=== PATIENT | male | born 1995 | race Caucasian/White ===

== ENCOUNTER 2020-07-25 11:47 | Emergency (ER) | payer OTHER ==
--- NOTE | 2020-07-25 12:50 | ER Document Report ---
Entered by STEVE STEVENSON SCRIBE 07/25/20 1204 Acting as scribe for:LATOYA MARTINO MD ED Respiratory Problem - General Chief Complaint: Shortness Of Breath Stated Complaint: SHORTNESS OF BREATH Time Seen by Provider: 07/25/20 12:03 Mode of Arrival: Ambulatory Information source: Patient Notes: This 25 year old male patient with a history of asthma presents to the ED today for evaluation after [facility] today and reportedly being hypoxic with an O2 saturation of 91% on room air. Patient O2 saturation was 97% on room air when he arrived here. Patient states that his symptoms started with just post nasal drip x6 days ago which then developed into cough and congestion a day later. He reports that he became short of breath with a " heavy chest" x3.5 days ago. He reports that he thought his symptoms were related to his asthma and allergies, so he didn't get tested immediately. He states that he does feel better at this time. Denies headache or runny nose. - Related Data Allergies/Adverse Reactions: Penicillins Allergy (Verified 07/25/20 12:41) mold Adverse Reaction (Verified 07/25/20 12:41) tree and shrub pollen Adverse Reaction (Verified 07/25/20 12:41) MITES Adverse Reaction (Uncoded 07/25/20 12:41) PET DANDER Adverse Reaction (Uncoded 07/25/20 12:41) Past Medical History - General Information source: Patient - Social History Smoking Status: Never Smoker Cigarette use (# per day): No Chew tobacco use (# tins/day): No Smoking Education Provided: No Frequency of alcohol use: Occasional Drug Abuse: None Family History: Reviewed & Not Pertinent Pulmonary Medical History: Reports: Hx Asthma Review of Systems - Review of Systems Constitutional: See HPI, Recent illness EENT: See HPI, Other - Post nasal drainage. denies: Nose discharge Cardiovascular: Other - "heavy chest" Respiratory: See HPI, Cough, Short of breath Gastrointestinal: No symptoms reported Genitourinary: No symptoms reported Male Genitourinary: No symptoms reported Musculoskeletal: No symptoms reported Skin: No symptoms reported Hematologic/Lymphatic: No symptoms reported Neurological/Psychological: See HPI. denies: Headaches -: Yes All other systems reviewed and negative Physical Exam - Vital signs Vitals: Temp Pulse Resp BP Pulse Ox 98.3 F 105 H 20 182/107 H 97 07/25/20 11:51 07/25/20 11:51 07/25/20 11:51 07/25/20 11:51 07/25/20 11:51 - General General appearance: Alert In distress: None - HEENT Head: Normocephalic, Atraumatic Eyes: Normal Extraocular movements intact: Yes Pupils: PERRL - Respiratory Breath sounds: Other - Coarse breath sounds and rhonchi in the bases when he coughs - Cardiovascular Rhythm: Regular Heart sounds: Normal auscultation Murmur: No - Abdominal Inspection: Obese Distension: No distension Bowel sounds: Normal Tenderness: Nontender - Abdomen soft Organomegaly: No organomegaly - Back Back: Normal, Nontender - Extremities General upper extremity: Normal inspection General lower extremity: Normal inspection. No: Edema - Neurological Neuro grossly intact: Yes Orientation: AAOx4 Bolton Coma Scale Eye Opening: Spontaneous Rich Coma Scale Verbal: Oriented Bolton Coma Scale Motor: Obeys Commands Rich Coma Scale Total: 15 - Psychological Associated symptoms: Normal affect, Normal mood - Skin Skin Temperature: Warm Skin Moisture: Dry Skin Color: Normal Course - Re-evaluation Re-evalutation: 07/25/20 12:52 The patient was evaluated during the global COVID-19 pandemic and that diagnosis was suspected/considered upon their initial presentation. Their evaluation, treatment and testing was consistent with current guidelines for patients who present with complaints or symptoms that may be related to COVID-19. 07/25/20 15:29 The patient was given a DuoNeb treatment, he P reports that about 1 minute into the treatment the medicine container part came apart and the medicine came out. One of the staff workers came and turned off the air and hung it on the wall and did not return. I was never informed of this. Patient's lungs however do not show any wheezes and did not when I initially saw him so I doubt it would have made any difference in his shortness of breath. On patient arrival his blood pressure was quite high, however now it is down to a normal range. - Vital Signs Vital signs: Temp Pulse Resp BP Pulse Ox 98.3 F 89 16 138/90 H 99 07/25/20 11:51 07/25/20 16:07 07/25/20 16:07 07/25/20 16:07 07/25/20 16:07 - Laboratory Results Result Diagrams: 07/25/20 13:23 07/25/20 13:23 Laboratory Results Interpreted: 07/25/20 13:23 WBC 3.5 L Critical Laboratory Results Reviewed: No Critical Results - Radiology Results Radiology Results Interpreted: 07/25/20 13:58 Chest x-rays not show acute cardiopulmonary abnormalities. Critical Radiology Results Reviewed: No Critical Results Discharge - Discharge Clinical Impression: Dyspnea on exertion, COVID-19 virus infection, History of asthma Condition: Stable Disposition: HOME, SELF-CARE Instructions: COVID-19 Guidance for Persons Under Investigation Additional Instructions: Dyspnea, Nonspecific: You were evaluated for shortness of breath, or dyspnea. Dyspnea has many causes, and some are more serious than others. Sometimes it's impossible to diagnose the cause of dyspnea with the tests that are available on an emergency basis. Based on our evaluation today, you do not need hospitalization now. We found no evidence of pneumonia, collapsed lung, blood clots in the lung, tumors, or heart failure. Causes of non-specific dyspnea can include asthma or bronchospasm, hyperventilation, emotional distress, heart disease, emphysema, fibrosis of the lung, and stiffness of the chest wall. In healthy individuals with a single episode, it's sometimes reasonable to do nothing but wait to see if the problem occurs again. Additional tests used to evaluate dyspnea can include cardiac stress testing, echocardiography, pulmonary function testing, CAT scan of the chest, bronchoscopy or pulmonary biopsy. Return if shortness of breath persists or worsens, or if you develop chest pain, fever, cough, confusion, or fainting. Your symptoms of shortness of breath with exertion are most likely due to the Covid virus infection that you tested positive for today. You should rest and avoid exertion until you are feeling better. Drink plenty of fluids. Start the following treatment regimen: Vitamin D3 2000 units/day. Vitamin C 500 mg twice daily. Vitamin B complex daily. Quercetin 250 mg twice daily. Melatonin 10 mg at bedtime. Zinc 100 mg daily. 1 baby aspirin daily. Pepcid 40 mg twice daily. You will receive a prescription for Ivermectin 15 mg today and 50 mg on day 3. Get a fingertip pulse oximeter device to watch your oxygen concentrations. If you drop below 94% at rest, for more than 30 minutes, you should return to the emergency room for further evaluation. RETURN TO THE EMERGENCY ROOM IF ANY NEW OR WORSENING SYMPTOMS. Prescriptions: Ivermectin [Stromectol 3 mg Tablet] 15 mg PO ASDIR PRN #10 tablet PRN Reason: I personally performed the services described in the documentation, reviewed and edited the documentation which was dictated to the scribe in my presence, and it accurately records my words and actions.
--- NOTE | 2020-07-25 12:52 | RADIOLOGY REPORT (SQ) ---
EXAM DESCRIPTION: CHEST SINGLE VIEW IMAGES COMPLETED DATE/TIME: 07/25/2020 12:42 pm REASON FOR STUDY: FRIED,asthma, Covid + COMPARISON: None. EXAM PARAMETERS: NUMBER OF VIEWS: One view. TECHNIQUE: Single frontal radiographic view of the chest acquired. RADIATION DOSE: NA LIMITATIONS: None. FINDINGS: LUNGS AND PLEURA: No opacities, masses or pneumothorax. No pleural effusion. MEDIASTINUM AND HILAR STRUCTURES: No masses. Contour normal. HEART AND VASCULAR STRUCTURES: Heart normal in size. Normal vasculature. BONES: No acute findings. HARDWARE: None in the chest. OTHER: No other significant finding. IMPRESSION: NO ACUTE RADIOGRAPHIC FINDING IN THE CHEST. TECHNICAL DOCUMENTATION: JOB ID: [id number] 2010 [employer]- All Rights Reserved Reading location - IP/workstation name: [email or web address]
[2020-07-25 13:47] LABS: ABSOLUTE LYMPHOCYTES (AUTO) 1.2 10^3/uL (0.5-4.7); ABSOLUTE MONOCYTES (AUTO) 0.3 10^3/uL (0.1-1.4); BASOPHILS % (AUTO) 0.7 % (0-2); EOSINOPHILS % (AUTO) 1.3 % (0-6); HEMATOCRIT 43.4 % (37.9-51.0); HEMOGLOBIN 15.5 g/dL (13.5-17.0); LYMPHOCYTES % (AUTO) 33.7 % (13-45); MEAN CORPUSCULAR HGB CONC 35.6 g/dL (32.0-36.0); MEAN CORPUSCULAR VOLUME 87 fl (80-97); MONOCYTES % (AUTO) 8.8 % (3-13); PLATELET COUNT 188 10^3/uL (150-450); RED BLOOD COUNT 4.98 10^6/uL (4.35-5.55); RED CELL DISTRIBUTION WIDTH 12.8 % (11.5-14.0); SEGMENTED NEUTROPHILS % (AUTO) 55.5 % (42-78); TOTAL CELLS COUNTED % (AUTO) 100 %; WHITE BLOOD COUNT 3.5 10^3/uL (4.0-10.5)
[2020-07-25 14:05] LABS: ALBUMIN 4.3 g/dL (3.5-5.0); ALKALINE PHOSPHATASE 72 U/L (38-126); ANION GAP 11 (5-19); ASPARTATE AMINO TRANSFERASE 38 U/L (17-59); BILIRUBIN,DIRECT 0.2 mg/dL (0.0-0.4); BILIRUBIN,TOTAL 0.7 mg/dL (0.2-1.3); BLOOD UREA NITROGEN 8 mg/dL (7-20); CALCIUM 9.4 mg/dL (8.4-10.2); CARBON DIOXIDE 24 mmol/L (22-30); CHLORIDE 107 mmol/L (98-107); GLUCOSE 92 mg/dL (75-110); POTASSIUM 4.1 mmol/L (3.6-5.0); TOTAL PROTEIN 7.6 g/dL (6.3-8.2)
[2020-07-25 14:08] LABS: C-REACTIVE PROTEIN < 5.0 mg/L (<10.0)
[2020-07-25] MEDS ORDERED: IPRATROPIUM/ALBUTEROL 0.5-2.5 MG/3 ML AMPUL NEB ONE (14:11)
[2020-07-25 16:08] VITALS: BP 138/90
== END 2020-07-25 16:08 | disposition home or self-care (01) ==
LOC: ER 11:47
DX: U07.1 COVID-19 (principal); R06.09 Other forms of dyspnea; R06.02 Shortness of breath; J45.909 Unspecified asthma, uncomplicated; Z88.0 Allergy status to penicillin
CPT/HCPCS: 36415; 71045; 80053; 85025; 85379; 86140; 94640; 99284